=== PATIENT | male | born 1975 | race Two or more races ===

== ENCOUNTER → 2018-08-20 | Emergency (ER) | payer MEDICAID ==
[~2018-08-20] MED LIST: IBUP-781
== END | disposition left against medical advice (07) ==
LOC: ER 01:26
DX: T78.40XA Allergy, unspecified, initial encounter (principal); Z53.21 Procedure and treatment not carried out due to patient leaving prior to being seen by health care provider; X58.XXXA Exposure to other specified factors, initial encounter

== ENCOUNTER 2022-04-18 20:27 | Emergency (ER) | payer MEDICAID ==
[~2022-04-18] VITALS: Ht 170.2 cm; Wt 100.0 kg
[2022-04-19] MEDS ORDERED: TETRACAINE HCL 0.5% OPTH(EYE) SOLN 4ML LEFTEYE ONE
[2022-04-19] MEDS ORDERED: FLUORESCEIN SOD OPTH TEST STRIP LEFTEYE ONE
[2022-04-19] MEDS ORDERED: GEN03OS LEFTEYE (00:39)
[2022-04-19] MEDS ORDERED: GENTAMICIN OPTH sol 0.3% 5ml LEFTEYE ONE (00:45)
[2022-04-19 01:10] VITALS: BP 125/72
== END 2022-04-19 01:52 | disposition home or self-care (01) ==
LOC: ER 20:30
DX: T15.02XA Foreign body in cornea, left eye, initial encounter (principal); W26.8XXA Contact with other sharp object(s), not elsewhere classified, initial encounter; Y93.89 Activity, other specified; Y92.89 Other specified places as the place of occurrence of the external cause; Y99.8 Other external cause status
CPT/HCPCS: 65220